=== PATIENT | female | born 1985 | race Caucasian/White ===

== ENCOUNTER 2024-05-02 11:52 | Emergency (ER) | payer OTHER, SELFPAY ==
--- NOTE | ~2024-05-02 | XR_ITS ---
XR chest 2V Ordering provider: Hannah Mcpherson APRN History: 38 years Female with . cough x 1 day, fatigue, fever, hx asthma, daughter pneumonia . Comparison: July 20, 2016 FINDINGS: MEDIASTINUM: The cardiac silhouette is not enlarged. LUNGS: No infiltrates, effusions or pneumothorax. OTHER: No free air under the diaphragm. IMPRESSION: No acute cardiopulmonary pathology. Reviewed, dictated and finalized at location A.
[2024-05-02 12:07] VITALS: BP 135/95; PULSE 104; RESP 18; TEMP 36.8; O2SAT 99
--- NOTE | 2024-05-02 12:11 | ED.URI ---
HPI - URI/Sore Throat General Chief Complaint: Upper Respiratory Infection Stated Complaint: chest congestion Time Seen by Provider: 05/02/24 12:11 Source: patient Mode of arrival: ambulatory Limitations: no limitations History of Present Illness HPI Narrative: 38 yo female presented for c/o cough and feeling heavy in chest since yesterday. Endorses fatigue and subjective fever. Reports exposure to pneumonia from child. Denies sob, wheezing, n/v/d. Not taking anything for symptoms. Related Data Home Medications Medication Instructions Recorded Confirmed albuterol sulfate 90 mcg/actuation 2 puff inhalation Q4-6H PRN 07/02/19 05/02/24 aerosol inhaler (Ventolin HFA) Wheezing cetirizine 10 mg tablet (Zyrtec) 10 mg PO DAILY 07/02/19 05/02/24 norethindrone 1 mg-ethinyl 1 tablet PO DAILY 07/02/19 05/02/24 estradiol 10 mcg (24)-iron 10 mcg(2) tablet (Lo Loestrin Fe) Allergies Allergy/AdvReac Type Severity Reaction Status Date / Time No Known Allergies Allergy Unknown Verified 02/23/24 10:16 Review of Systems Review of Systems: CONSTITUTIONAL: Denies body aches EYES: Denies visual changes, redness, or discharge. ENT: Denies rhinorrhea, congestion, sore throat, or otalgia. CARDIOVASCULAR: Denies chest pain, palpitations, or edema. RESPIRATORY: Reports cough, denies sob, wheezing. GASTROINTESTINAL: Denies abdominal pain, nausea, vomiting, or diarrhea. MUSCULOSKELETAL: Denies back pain, joint pain, or myalgia. NEUROLOGIC: Denies headache, numbness, tingling, or weakness. All systems reviewed & are unremarkable except as noted in HPI and below PMFSH Family History Family History Father Patient's father is in good health Sibling Patient's sister is in good health Social History Social History Smoking status: Never smoker Second hand tobacco smoke exposure: No Alcohol intake: current Substance use: unknown Lack of Transportation: No Lack of Food: Never True Current Housing: I Have Housing Concerned About Future Housing: No Difficulty Paying Gas/Electric Bills: No Difficulty Paying for Meds: No Currently Unemployed: No Education: Master's Degree or Higher Difficulty w/ Childcare or Family Care: No Comments At time of signature, I have reviewed and agree with nursing past medical, surgical, social and family history unless otherwise noted. Please see nursing chart for further information. There is no relevant family history pertinent to the presenting complaint Exam Narrative: GENERAL: Well-appearing EYES: EOMI. No redness or drainage. Conjunctivae normal. ENT: Mucous membranes pink and moist. No rhinorrhea. TMs normal bilaterally. Throat normal. Uvula midline. CHEST: No respiratory distress. Lungs clear and diminished to all foss. HEART: Regular rate and rhythm. No murmur appreciated. ABDOMEN: Soft, nontender, nondistended, normal active bowel sounds. SKIN: Warm, dry, no rash. Capillary refill normal. Normal skin turgor. NEURO: Alert and oriented x3. Gait steady. PSYCH: Normal affect. Course Course Emergency Course: Patient is aware of diagnosis, understands and agrees to treatment plan. Anticipatory guidance given. Patient agrees to follow-up as directed and is aware of reasons to seek care at the emergency department. Portions of this record may have been created with voice recognition software Level of Care: Express Care Visit Vital Signs Vital signs: Vital Signs Temperature 98.3 F 05/02/24 12:07 Pulse Rate 104 H 05/02/24 12:07 Respiratory Rate 18 05/02/24 12:07 Blood Pressure 135/95 H 05/02/24 12:07 Pulse Oximetry 99 05/02/24 12:07 Oxygen Delivery Room Air 05/02/24 12:07 Temperature 98.3 F 05/02/24 12:07 Pulse Rate 104 H 05/02/24 12:07 Respiratory Rate 18 05/02/24 12:07 Blood Pressure 135/95 H 05/02/24 12:07 Pulse Oximetry 99 05/02/24 12:07 Oxygen Delivery Room Air 05/02/24 12:07 MDM - URI/Sore Throat MDM Narrative Medical decision making narrative: Discussed physical exam findings and CXR. Advised supportive measures and signs/symptoms to go to the ER. Pt is appropriate for outpt treatment and f/u. Differential Diagnosis Differential diagnosis: Likely upper respiratory infection, sinusitis, viral infection, bronchitis, influenza and other (pneumonia) Imaging Data Radiologist's impression: Patient: Smiley Driscoll : 1985 MR#: [id number] Age: 38 Acct:[id number] Loc: [id number] ADM Date: 05/02/24Attending Dr: Ordering Physician: Hannah Mcpherson APRN Date of Service: 05/02/24 Procedure(s): XR chest 2V Accession Number(s): [id number] cc: Hannah Mcpherson APRN; Howard Sneed PA-C~ XR chest 2V Ordering provider: Hannah Mcpherson APRN History: 38 years Female with . cough x 1 day, fatigue, fever, hx asthma, daughter pneumonia . Comparison: July 20, 2016 FINDINGS: MEDIASTINUM: The cardiac silhouette is not enlarged. LUNGS: No infiltrates, effusions or pneumothorax. OTHER: No free air under the diaphragm. IMPRESSION: No acute cardiopulmonary pathology. Discharge Plan Discharge Clinical Impression: Bronchitis Patient Disposition: Home, Self-Care Condition: Stable Instructions: Antibiotic Form, Acute Bronchitis (ED) Additional Instructions: Acute bronchitis can be contagious because it is usually caused by infection with a virus or bacteria. It is usually for a few days but you can be contagious for up to one week. Avoid crowds until you do not have a fever and symptoms are improved Take medication as directed Recommend Flonase spray and Zyrtec (or Claritin/Aysha) over the counter Cough syrup may cause drowsiness; avoid driving or take it at night time. Tylenol 1000mg every 8 hours as needed for pain Symptomatic treatment includes: rest, fluids, and increase humidity of the air at home. Follow up with your primary care provider as needed in 1 week Go to the ER for worsening symptoms or concerns Prescriptions: New benzonatate 200 mg capsule 200 mg PO TID PRN (Reason: cough) Qty: 20 0RF methylprednisolone [Medrol (Castro)] 4 mg tablets,dose pack See Rx Instructions .ROUTE .COMPLEX Qty: 21 0RF Rx Instructions: orally per package directions No Action Lo Loestrin Fe 1 mg-10 mcg (24)/10 mcg (2) tablet 1 tablet PO DAILY albuterol sulfate [Ventolin HFA] 90 mcg/actuation HFA aerosol inhaler 2 puff INHALATION Q4-6H PRN (Reason: Wheezing) cetirizine [Zyrtec] 10 mg tablet 10 mg PO DAILY amlodipine 5 mg tablet 5 mg PO DAILY Qty: 90 2RF Follow-up/Referrals: Nedra,Howard Gomez PA-C [Primary Care Provider] - Time of Disposition: 12:45
== END 2024-05-02 12:50 | disposition home or self-care (01) ==
PROVIDERS: Emergency Provider Nurse Practitioner Family; PCP Physician Assistant
DX: J40 Bronchitis, not specified as acute or chronic (principal); J45.909 Unspecified asthma, uncomplicated
CPT/HCPCS: 71046; 99213; G0463

== ENCOUNTER 2024-05-19 09:33 | Emergency (ER) | payer OTHER, SELFPAY ==
--- NOTE | ~2024-05-19 | XR_ITS ---
Clinical Indication: Cough, shortness of breath PA and lateral views of the chest: Comparison: 05/02/2024 Findings: The lungs are clear, without evidence of focal consolidation or pleural effusion. Cardiome diastinal silhouette is within normal limits. Bones and soft tissues are unremarkable. Impression: Normal chest. Reviewed, dictated and finalized at location . ERCIAL CARPENTER Impression: Normal chest.
[2024-05-19 09:38] VITALS: BP 152/95; PULSE 99; RESP 16; TEMP 36.7; O2SAT 98
[2024-05-19 09:41] VITALS: BP 152/95; PULSE 99; RESP 16; TEMP 36.7; O2SAT 98
[2024-05-19 09:48] VITALS: PULSE 99; RESP 18; O2SAT 98
--- NOTE | 2024-05-19 10:07 | ED_ITS ---
HPI - URI/Sore Throat General Chief Complaint: Upper Respiratory Infection Stated Complaint: Cough Time Seen by Provider: 05/19/24 09:44 Source: patient, RN notes reviewed and old records reviewed Mode of arrival: ambulatory Limitations: no limitations History of Present Illness HPI Narrative: Patient presents today with a 3 week history severe cough. States it is now difficult for her to catch her breath as well. She was seen here at [facility] on 05/02/2024, diagnosed bronchitis and discharged with prescription for Medrol Dosepak and Tessalon Perles. Four days later on 05/06/2024 she was called in a prescription for azithromycin by her PCP. States symptoms have not improved with these medications. She has increased her use of her albuterol inhaler without much relief of symptoms. She does have history of asthma as well. Along with her cough, she does have several episodes of posttussive vomiting after severe episodes. Patient has also developed a rash to the upper chest and neck a few days ago. Denies any itching or pain. No changes in household products, foods, plant or animal exposures. She called asking her PCPs office if she should take some Benadryl as she was also taking some Robitussin and they told her no. Related Data Home Medications Medication Instructions Recorded Confirmed norethindrone 1 mg-ethinyl 1 tablet PO DAILY 07/02/19 05/19/24 estradiol 10 mcg (24)-iron 10 mcg(2) tablet (Lo Loestrin Fe) albuterol 90 mcg/actuation aerosol 90 mcg inhalation DIRECTED 05/19/24 05/19/24 inhaler Allergies Allergy/AdvReac Type Severity Reaction Status Date / Time No Known Allergies Allergy Unknown Verified 05/19/24 09:40 Review of Systems Review of Systems: CONSTITUTIONAL: Denies body aches, fever, chills, or sweats. EYES: Denies visual changes, redness, or discharge. ENT: Denies rhinorrhea, congestion, sore throat, or otalgia. CARDIOVASCULAR: Denies chest pain, palpitations, or edema. RESPIRATORY: Cough, shortness of breath GASTROINTESTINAL: Denies abdominal pain, nausea, or diarrhea.+ post-tussive vomiting GENITOURINARY: Denies dysuria or hematuria. SKIN: Denies rash, itching, or wounds. MUSCULOSKELETAL: Denies back pain, joint pain, or myalgia. NEUROLOGIC: Denies headache, numbness, tingling, or weakness. PSYCH: Denies depression or anxiety. [facility] Past Medical History Medical History (Updated 05/19/24 @ 10:51 by Roxann Frazier, LASHA, ) Asthma Essential hypertension Family History Family History Father Patient's father is in good health Sibling Patient's sister is in good health Social History Social History Smoking status: Never smoker Second hand tobacco smoke exposure: No Alcohol intake: current Substance use: unknown Lack of Transportation: No Lack of Food: Never True Current Housing: I Have Housing Concerned About Future Housing: No Difficulty Paying Gas/Electric Bills: No Difficulty Paying for Meds: No Currently Unemployed: No Education: Master's Degree or Higher Difficulty w/ Childcare or Family Care: No Comments At time of signature, I have reviewed and agree with nursing past medical, surgical, social and family history unless otherwise noted. Please see nursing chart for further information. There is no relevant family history pertinent to the presenting complaint Exam Narrative: GENERAL: Mildly ill-appearing, well-nourished, and in no acute distress. HEAD: Normocephalic, atraumatic. EYES: EOMI. No redness or drainage. Conjunctivae normal. ENT: Mucous membranes pink and moist. Nares clear. No rhinorrhea. TMs normal bilaterally. Throat normal. Uvula midline. NECK: Normal AROM. Supple. No lymphadenopathy. CHEST: No respiratory distress. Inspiratory wheeze in the right upper lobe, otherwise clear. Inspiration elicits harsh coughing episodes. HEART: Regular rate and rhythm. No murmur appreciated. EXTREMITIES: Normal range of motion. No edema. SKIN: Warm, dry. Capillary refill normal. Normal skin turgor. Erythematous papular rash to right upper chest and neck NEURO: No focal deficits. Alert and oriented x3. Gait steady. PSYCH: Normal affect. No signs of depression or anxiety. Course Course Level of Care: Express Care Visit Vital Signs Vital signs: Vital Signs Temperature 98.1 F 05/19/24 09:38 Pulse Rate 99 05/19/24 09:38 Respiratory Rate 16 05/19/24 09:38 Blood Pressure 152/95 H 05/19/24 09:38 Pulse Oximetry 98 05/19/24 09:38 Temperature 98.1 F 05/19/24 09:41 Pulse Rate 100 05/19/24 11:00 Respiratory Rate 20 05/19/24 11:00 Blood Pressure 152/95 H 05/19/24 09:41 Pulse Oximetry 99 05/19/24 11:00 Oxygen Delivery Room Air 05/19/24 09:48 Reviewed MDM - URI/Sore Throat MDM Narrative Medical decision making narrative: Chest x-ray negative. DuoNeb administered. Patient states she is able to take a deeper breath and feels more open after DuoNeb past finished. Aeration has improved per auscultation. Patient's symptoms are likely due to post infectious cough exacerbating her asthma. Prescription for prednisone sent to pharmacy to start tomorrow, but 1st dose of steroids was given here in injection. Anticipatory guidance given. ED precautions given. Differential Diagnosis Differential diagnosis: Likely upper respiratory infection, sinusitis, viral infection, bronchitis and other (Pneumonia, asthma exacerbation) Imaging Data Radiologist's impression: ITS Impressions Chest X-Ray 05/19/24 10:12 Impression: Normal chest. Critical Care Time Critical Care Time Critical Care Time: No Discharge Plan Discharge Clinical Impression: Asthma exacerbation Qualifiers: Asthma severity: unspecified severity Asthma persistence: unspecified Qualified Code(s): J45.901 - Unspecified asthma with (acute) exacerbation Patient Disposition: Home, Self-Care Condition: Improved Instructions: Asthma (DC) Additional Instructions: Your chest x-ray is negative for pneumonia today. Your symptoms are likely due to asthma exacerbation initiated by a viral illness. You have been given a breathing treatment here which should last for 4-6 hours. If symptoms worsen again, please use your albuterol inhaler. You have been given your 1st dose of steroids here in an injection. Start the prednisone tomorrow and take as directed. If symptoms worsen significantly, please go to the ER immediately for further evaluation. Your blood pressure was elevated above 120/80 today at Urgent Care. This puts you above the threshold for follow up. Please schedule a followup visit with your personal physician as soon as possible, for further evaluation and treatment. Even blood pressure exceeding 120/80 may indicate pre-hypertension. Prescriptions: New prednisone 50 mg tablet 50 mg PO DAILY 5 Days Qty: 5 0RF Rx Instructions: Start 05/20/24 (DME) BreatheRite MDI Spacer Spacer See Rx Instructions .ROUTE .MEDSUPPLY Qty: 1 0RF Rx Instructions: As directed No Action albuterol 90 mcg/actuation Aerosol 90 mcg INHALATION DIRECTED Lo Loestrin Fe 1 mg-10 mcg (24)/10 mcg (2) tablet 1 tablet PO DAILY amlodipine 5 mg tablet 5 mg PO DAILY Qty: 90 2RF Follow-up/Referrals: Nedra,PRASHANTH CalixC [Primary Care Provider] - Time of Disposition: 10:52
[2024-05-19] MEDS: ALBUTEROL SULFATE NEB 2.5 MG/3 ML INH INHALATION (10:11)
[2024-05-19] MEDS: IPRATROPIUM BR 0.02% INH SOLN 0.5 MG/2.5 ML VIAL INHALATION (10:16)
[2024-05-19] MEDS: dexAMETHasone SOD PHOS INJ 10 MG/ML 1 ML VIAL 14 MG IM (10:53)
[2024-05-19 11:00] VITALS: PULSE 100; RESP 20; O2SAT 99
== END 2024-05-19 11:02 | disposition home or self-care (01) ==
PROVIDERS: Emergency Provider Nurse Practitioner; PCP Physician Assistant
DX: J45.901 Unspecified asthma with (acute) exacerbation (principal); I10 Essential (primary) hypertension
CPT/HCPCS: 71046; 94640; 96372; 99213; G0463; J1100

== ENCOUNTER 2025-03-12 11:39 | Outpatient (CLI) | payer OTHER, SELFPAY ==
--- NOTE | ~2025-03-12 | XR_ITS ---
Abdominal radiograph(s) INDICATION: Left kidney stone COMPARISON: CT abdomen and pelvis 04/09/2015 TECHNIQUE: 2 view supine abdomen FINDINGS: 9 mm stone left kidney lower pole. 9 mm stone mid left ureter. Scattered colonic stool. Small bowel loops not well seen. No evidence of organomegaly. No acute bony abnormality. IMPRESSION: 1. 9 mm stone left kidney lower pole. 2. 9 mm stone mid left ureter. Reviewed, dictated and finalized at location R.
== END 2025-03-12 11:40 | disposition home or self-care (01) ==
LOC: MICIMG 11:40
PROVIDERS: PCP Internal Medicine; Visit Provider Internal Medicine
DX: N20.2 Calculus of kidney with calculus of ureter (principal)
CPT/HCPCS: 74018

== ENCOUNTER 2025-06-07 21:25 | Emergency (ER) | payer OTHER, SELFPAY ==
--- NOTE | ~2025-06-07 | XR_ITS ---
Examination: XR foot LT min 3V Clinical History: 1st toe injury Comparison: None Technique: 3 views left foot Findings/impression: 1. No fracture or dislocation left foot. Reviewed, dictated and finalized at location R. ETL DEVELOPER
[2025-06-07 21:41] VITALS: BP 152/89; PULSE 88; RESP 20; TEMP 36.9; O2SAT 98
[2025-06-07 21:48] VITALS: BP 157/98; RESP 16; O2SAT 100
[2025-06-07] MEDS: TETANUS,DIPHTHERIA,AC PERTUSSIS ADULT (0.5 ML) BOOSTRIX IM (22:52)
[2025-06-07] MEDS: CEPHALEXIN 500 MG CAPSULE PO (22:52)
[2025-06-07 23:12] VITALS: BP 152/88; PULSE 86; RESP 16; O2SAT 97
--- NOTE | 2025-06-08 00:18 | ED_ITS ---
HPI - Extremity Injury (Lower) General Chief Complaint: Extremity Injury, Lower Stated Complaint: toe injury Time Seen by Provider: 06/07/25 21:51 History of Present Illness HPI Narrative: Patient caught her socked foot under a table and partially yanked out her left big toenail. Was trying to put it back but only made it worse. Related Data Home Medications ?Medication ?Instructions ?Recorded ?Confirmed ?Last Taken ?Type albuterol 90 mcg/actuation aerosol 90 mcg inhalation A S DIRECTED 05/19/24 02/28/25 Unknown History inhaler Allergies Allergy/AdvReac Type Severity Reaction Status Date / Time No Known Allergies Allergy Unknown Verified 06/07/25 22:06 Review of Systems Review of Systems: All systems reviewed & are unremarkable except as noted in HPI and below PMFSH Past Medical History Medical History (Updated 06/08/25 @ 00:00 by Maddie Hsieh) Right upper quadrant abdominal pain Opacity of lung on imaging study Hypersomnia Dietary counseling and surveillance (03/18/16) Chronic cough Body mass index [BMI] 34.0-34.9, adult (08/18/17) Body mass index [BMI] 33.0-33.9, adult (02/16/18) Body mass index [BMI] 32.0-32.9, adult (05/25/18) Acute sinusitis Essential hypertension Asthma Family History Family History Father Patient's father is in good health Sibling Patient's sister is in good health Social History Social History (Updated 02/28/25 @ 09:03 by Ngozi Fraga) Smoking status: Never smoker Second hand tobacco smoke exposure: No Alcohol intake: current Substance use: unknown Lack of Transportation: No Lack of Food: Never True Current Housing: I Have Housing Concerned About Future Housing: No Difficulty Paying Gas/Electric Bills: No Difficulty Paying for Meds: No Currently Unemployed: No Education: Master's Degree or Higher Difficulty w/ Childcare or Family Care: No Living arrangements: with family Occupation/Education: occupation Gender identity (if verbalized by the patient): Female Sexual Orientation (if Verbalized by the Patient): Straight or Heterosexual Exam Narrative: EXAMINATION OF ORGAN SYSTEMS/BODY AREAS: Constitutional: Vital signs per nursing GENERAL: Appears uncomfortable HEAD: Normal with no signs of head trauma. EYES: EOMI, conjunctiva normal ENT: Hearing grossly intact LUNGS: Nonlabored breathing. HEART: [Regular rate and rhythm] ABD: [Soft], [nontender to palpation] EXT: Normal range of motion; partially avulsed left great toe nail SKIN: Some bleeding left great toe NEURO: [Alert and oriented x 3. No gross focal sensory or strength deficits.] PSYCH: Normal affect Course Vital Signs Vital signs: Vital Signs Temperature 98.4 F 06/07/25 21:41 Pulse Rate 88 06/07/25 21:41 Respiratory Rate 20 06/07/25 21:41 Blood Pressure 152/89 H 06/07/25 21:41 Pulse Oximetry 98 06/07/25 21:41 Temperature 98.4 F 06/07/25 21:41 Pulse Rate 86 06/07/25 23:12 Respiratory Rate 16 06/07/25 23:12 Blood Pressure 152/88 H 06/07/25 23:12 Pulse Oximetry 97 06/07/25 23:12 Oxygen Delivery Room Air 06/07/25 21:48 Procedures Nerve Block Nerve Block 1: Nerve block date: 06/08/25 Nerve block time: 22:30 Local Anesthetic: bupivacaine 0.25% Amount of anesthesia used (mL): 3 Side: left Nerve Blocks: digital Procedure Successful: Yes Patient Tolerated Procedure: well Complications: pain with procedure MDM - Extremity Injury (Lower) MDM Narrative Medical decision making narrative: Patient presenting here with injury to her left great toenail, on exam the nail was partially avulsed and sticking straight up, with some bleeding. Ring digital Nerve block of the toe performed with complete anesthesia. I was able to remove the avulsed nail, the nail bed is traumatized but I do not see any obvious laceration to repair. Stopped with pressure. Patient tolerated this very well. Dressing applied, patient given follow-up to podiatry as needed, antibiotics prophylactically ordered and she is stable for discharge with return precautions. Tetanus updated Discharge Plan Discharge Clinical Impression: Avulsed toenail Patient Disposition: Home Condition: Stable Instructions: Antibiotic Form, Nail Avulsion (ED) Additional Instructions: Please keep it clean, take the antibiotics as prescribed. If you notice any redness or swelling you can return to the emergency room. Patient Language: Australian Prescriptions: New cephalexin 500 mg capsule 500 mg PO Q12H 5 Days Qty: 10 0RF No Action albuterol 90 mcg/actuation Aerosol 90 mcg INHALATION DIRECTED (DME) BreatheRite MDI Spacer Spacer See Rx Instructions .ROUTE .MEDSUPPLY Qty: 1 0RF Rx Instructions: As directed Lo Loestrin Fe 1 mg-10 mcg (24)/10 mcg (2) tablet 1 tablet PO DAILY Qty: 28 2RF amlodipine 5 mg tablet See Rx Instructions .ROUTE .COMPLEX Qty: 90 1RF Dose Instruction: TAKE 1 TABLET BY MOUTH EVERY DAY Rx Instructions: TAKE 1 TABLET BY MOUTH EVERY DAY Follow-up/Referrals: Ata Whitlock Jr., ALECM [Physician, Podiatry] - 3 Days Lyle Laurent, [Primary Care Provider, Internal Medicine]
== END 2025-06-07 23:14 | disposition home or self-care (01) ==
LOC: ANHED 23:02
PROVIDERS: Emergency Provider Emergency Medicine; PCP Internal Medicine
DX: S91.202A Unspecified open wound of left great toe with damage to nail, initial encounter (principal); Z23 Encounter for immunization; I10 Essential (primary) hypertension; J45.909 Unspecified asthma, uncomplicated; W22.03XA Walked into furniture, initial encounter
CPT/HCPCS: 11730; 64450; 73630; 90471; 90715; 99283; A9270